=== PATIENT | male | born 1955 | race Asian ===

== ENCOUNTER 2022-10-25 11:34 | Emergency (ER) | payer MEDICARE ==
[~2022-10-25] VITALS: Ht 167.6 cm; Wt 70.5 kg
[2022-10-25 11:36] VITALS: TEMP 98.4
[2022-10-25] MEDS ORDERED: FURO20 PO (11:42)
[2022-10-25] MEDS ORDERED: TICA60TA PO (11:42)
[2022-10-25] MEDS ORDERED: SACU1TAB PO (11:42)
[2022-10-25] MEDS ORDERED: ASPI-1450 PO (11:42)
[2022-10-25] MEDS ORDERED: HYDROCODONE/ACETAMINOPHEN 5-325 MG TABLET PO ONE (14:15)
[2022-10-25 14:43] LABS: BASOPHILS % (AUTO) 1.4 % (0.0-2.0); EOSINOPHILS % (AUTO) 4.8 % (1.0-6.0); HEMATOCRIT 39.5 % (41-53); HEMOGLOBIN 13.2 g/dL (13.5-17.5); LYMPHOCYTES # (AUTO) 1.9 K/uL (1.0-4.8); LYMPHOCYTES % (AUTO) 25.5 % (22.0-44.0); MEAN CORPUSCULAR HEMOGLOBIN 32.1 pg (26.0-34.0); MEAN CORPUSCULAR HGB CONC 33.4 G/dL (31.0-37.0); MEAN CORPUSCULAR VOLUME 96 fL (80-100); MONOCYTES # (AUTO) 0.5 K/uL (0.1-1.0); MONOCYTES % (AUTO) 6.6 % (2.0-9.0); NEUTROPHILS # (AUTO) 4.6 K/uL (1.8-7.7); NEUTROPHILS % (AUTO) 61.7 % (40.0-70.0); PLATELET COUNT (AUTO) 183 K/uL (150-450); RED BLOOD CELL COUNT(AUTO) 4.11 MIL/uL (4.50-5.90); WHITE BLOOD COUNT (AUTO) 7.5 K/uL (4.5-11.0)
[2022-10-25 14:51] LABS: CALCIUM, TOTAL 9.4 mg/dL (8.8-10.5); CREATININE 1.4 mg/dL (0.60-1.30); POTASSIUM 3.7 mmol/L (3.5-5.1)
[2022-10-25 14:57] LABS: BILIRUBIN,TOTAL 0.8 mg/dL (0.1-1.0); TOTAL PROTEIN, SERUM 7.5 g/dL (6.4-8.2)
[2022-10-25] MEDS ORDERED: MethylPREDNISolone SOD SUCC 125 MG/2 ML VIAL IM ONE (15:00)
[2022-10-25 15:54] LABS: URIC ACID 6.4 mg/dL (2.6-7.2)
[2022-10-25 16:06] LABS: C-REACTIVE PROTEIN QUANT 1.13 mg/dL (0.00-0.30)
[2022-10-25 16:20] VITALS: BP 139/87; PULSE 80; RESP 16
[2022-10-25 16:47] LABS: ERYTHROCYTE SEDIMENTATION RATE 30 MM/HR (0-15)
== END 2022-10-25 17:25 | disposition home or self-care (01) ==
LOC: EMS 11:43
DX: M76.62 Achilles tendinitis, left leg (principal); I11.0 Hypertensive heart disease with heart failure; I50.9 Heart failure, unspecified; Z98.890 Other specified postprocedural states; Z88.0 Allergy status to penicillin
CPT/HCPCS: 99283; 80053; 84550; 85025; 85651; 86140; 36415; 73630; 96372; J2930